=== PATIENT | male | born 1985 | race Caucasian/White ===

== ENCOUNTER 2023-05-03 03:30 | Emergency (ER) | payer MEDICAID, OTHER ==
[~2023-05-03] VITALS: Ht 185.4 cm; Wt 99.8 kg
[2023-05-03 05:03] VITALS: BP 135/91; TEMP 98.2; O2SAT 98
[2023-05-03] MEDS ORDERED: AMOX-430 PO (05:27)
[2023-05-03] MEDS ORDERED: dexaMETHasone SOD PHOSPHATE 1 ML ONE (05:35)
[2023-05-03] MEDS ORDERED: IBUPROFEN 400 MG TABLET ONE (05:35)
[2023-05-03] MEDS ORDERED: AMOX/CLAVULANATE 875 MG TABLET ONE (05:35)
[2023-05-03] MEDS: AMOX/CLAVULANATE 875 MG TABLET PO ONE (05:41)
[2023-05-03] MEDS: dexaMETHasone SOD PHOSPHATE 4 MG/ML VIAL IM ONE (05:41)
[2023-05-03] MEDS: IBUPROFEN 400 MG TABLET PO ONE (05:41)
== END 2023-05-03 05:52 | disposition home or self-care (01) ==
LOC: ER 03:36
DX: J02.9 Acute pharyngitis, unspecified (principal); Z79.899 Other long term (current) drug therapy; Z20.822 Contact with and (suspected) exposure to COVID-19
CPT/HCPCS: 99283; 87426; 96372; 87070; 87880; J1100; 86403-TC